=== PATIENT | male | born 1995 | race Caucasian/White ===

== ENCOUNTER 2019-07-19 20:02 | Emergency (ER) | payer SELFPAY ==
[2019-07-19 22:31] LABS: ABS Basophils 0.1 10^3/ul (0-0.2); ABS Eosinophils 0.1 10^3/ul (0-0.6); ABS Lymphocytes 2.7 10^3/ul (1.0-4.8); ABS Monocytes 0.5 10^3/ul (0-0.8); ABS Neutrophils 4.4 10^3/ul (1.5-7.7); Eosinophil % 0.8 %; Hematocrit 43 % (42-52); Hemoglobin 14.9 g/dL (14.0-18.0); Lymphocyte % 35.2 %; Mean Corpuscular HGB Conc 34 g/dL (31-36); Mean Corpuscular Hemoglobin 31 pg (27-31); Mean Corpuscular Volume 90 fL (80-94); Platelet Count 244 10^3/uL (150-450); Red Blood Count 4.81 10^6 /uL (4.18-5.48); Red Cell Distribution Width 14 % (10-15); White Blood Count 7.7 10^3/uL (3.5-10.8)
--- NOTE | 2019-07-19 22:47 | ED ---
Skin Complaint - HPI Summary HPI Summary: C/o rash to chest and back x 2 weeks. No prior hx of same. Rash itchy, non painful. Denies sob, throat or facial swelling, any other sx, pain or injury. Med hx = none. Denies new meds, chnage in soaps, detergents, lotions, new foods. - History of Current Complaint Chief Complaint: EDRashSkinAbscess Time Seen by Provider: 07/19/19 21:42 Stated Complaint: BODY RASH PER PT Hx Obtained From: Patient Onset/Duration: Started Weeks Ago Skin Exposure Onset/Duration: Weeks Ago Timing: Constant Current Severity: None Pain Intensity: 0 Pain Scale Used: 0-10 Numeric Skin Location: Chest Aggravating Symptom(s): Nothing Alleviating Symptom(s): Nothing Associated Signs & Symptoms: Rash - Allergy/Home Medications Allergies/Adverse Reactions: Allergies Allergy/AdvReac Type Severity Reaction Status Date / Time No Known Allergies Allergy Verified 07/19/19 20:25 PMH/Surg Hx/FS Hx/Imm Hx Endocrine/Hematology History: Denies: Hx Anticoagulant Therapy Cardiovascular History: Denies: Hx Pacemaker/ICD History: Denies: Hx Dialysis Sensory History: Denies: Hx Eye Prosthesis Opthamlomology History: Denies: Hx Legally Blind EENT History: Denies: Hx Deafness Neurological History: Denies: Hx Dementia - Immunization History Date of Influenza Vaccine: No Immunizations Up to Date: Yes Infectious Disease History: No Infectious Disease History: Denies: Traveled Outside the [place] in Last 30 Days - Family History Known Family History: Positive: Non-Contributory - Social History Alcohol Use: Occasionally Substance Use Type: Reports: Marijuana Substance Use Comment - Amount & Last Used: occasional Smoking Status (MU): Never Smoked Tobacco Review of Systems Constitutional: Negative Eyes: Negative ENT: Negative Cardiovascular: Negative Respiratory: Negative Gastrointestinal: Negative Genitourinary: Negative Musculoskeletal: Negative Positive: Rash Neurological: Negative Psychological: Normal All Other Systems Reviewed And Are Negative: Yes Physical Exam - Summary Physical Exam Summary: Individual satellite 1cm x 1cm lesions covering chest and back are erythematous , raised, scaly. Lesions are blanchable. Non vesicular, bilateral. Triage Information Reviewed: Yes Vital Signs On Initial Exam: Initial Vitals Temp Pulse Resp BP Pulse Ox 99 F 71 15 121/90 99 07/19/19 20:24 07/19/19 20:24 07/19/19 20:24 07/19/19 20:24 07/19/19 20:24 Vital Signs Reviewed: Yes Appearance: Positive: Well-Appearing Skin: Positive: Scaly Skin/Lesions. Negative: Tender, Target Lesions Head/Face: Positive: Normal Head/Face Inspection Eyes: Positive: Normal ENT: Positive: Normal ENT inspection Neck: Positive: Supple Respiratory/Lung Sounds: Positive: Clear to Auscultation Cardiovascular: Positive: Normal Abdomen Description: Positive: Nontender Musculoskeletal: Positive: Normal Neurological: Positive: Normal Psychiatric: Positive: Normal AVPU Assessment: Alert - [place] Coma Scale Best Eye Response: 4 - Spontaneous Best Motor Response: 6 - Obeys Commands Best Verbal Response: 5 - Oriented Coma Scale Total: 15 Procedures - Sedation Patient Received Moderate/Deep Sedation with Procedure: No Diagnostics - Vital Signs Vital Signs Temp Pulse Resp BP Pulse Ox 07/19/19 20:24 99 F 71 15 121/90 99 - Laboratory Lab Results: Lab Results 07/19/19 Range/Units 22:24 WBC 7.7 (3.5-10.8) 10^3/uL RBC 4.81 (4.18-5.48) 10^6 /uL Hgb 14.9 (14.0-18.0) g/dL Hct 43 (42-52) % MCV 90 (80-94) fL MCH 31 (27-31) pg MCHC 34 (31-36) g/dL RDW 14 (10-15) % Plt Count 244 (150-450) 10^3/uL MPV 8.0 (7.4-10.4) fL Neut % (Auto) 57.4 % Lymph % (Auto) 35.2 % [place] % (Auto) 5.9 % Eos % (Auto) 0.8 % Baso % (Auto) 0.7 % Absolute Neuts (auto) 4.4 (1.5-7.7) 10^3/ul Absolute Lymphs (auto) 2.7 (1.0-4.8) 10^3/ul Absolute Monos (auto) 0.5 (0-0.8) 10^3/ul Absolute Eos (auto) 0.1 (0-0.6) 10^3/ul Absolute Basos (auto) 0.1 (0-0.2) 10^3/ul Absolute Nucleated RBC 0.0 10^3/ul Nucleated RBC % 0.0 ESR Pending Result Diagrams: 07/19/19 22:24 07/19/19 22:24 Lab Statement: Any lab studies that have been ordered have been reviewed, and results considered in the medical decision making process. Course/Dx - Course Course Of Treatment: C/o rash to chest and back x 2 weeks. No prior hx of same. Rash itchy, non painful. Denies sob, throat or facial swelling, any other sx, pain or injury. Med hx = none. Denies new meds, chnage in soaps, detergents, lotions, new foods. VS wnl. Labs wnl. Also evaluated by Dr Chun. 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 Rx for betamethasone cream. F/up with derm. - Diagnoses Provider Diagnoses: Psoriasis Discharge ED - Sign-Out/Discharge Documenting (check all that apply): Patient Departure - Discharge Plan Condition: Stable Disposition: HOME Prescriptions: Betamethasone Brianne 0.1% CM(NF) [Valisone 0.1% CM(NF)] 1 applic .SEE ORDER DAILY 7 Days #7 applic Patient Education Materials: Psoriasis (ED) Referrals: No Primary Care Phys,NOPCP [Primary Care Provider] - Fang Fung MD [Medical Doctor] - Additional Instructions: Apply betamethasone cream once daily. Follow-up with dermatology Dr. Fung for further evaluation. - Billing Disposition and Condition Condition: STABLE Disposition: Home
[2019-07-19 22:50] LABS: ALT 20 U/L (7-52); Albumin 4.5 g/dL (3.2-5.2); Albumin/Globulin Ratio 1.7 (1-3); Alkaline Phosphatase 54 U/L (34-104); BUN/Creatinine Ratio 21.8 (8-20); Blood Urea Nitrogen 17 mg/dL (6-24); C Reactive Protein < 1.00 mg/L (<8.01); CO2 Carbon Dioxide 27 mmol/L (22-32); Calcium 9.7 mg/dL (8.6-10.3); Chloride 103 mmol/L (101-111); EGFR Non-African American 122.3 (>60); Globulin 2.7 g/dL (2-4); Glucose 85 mg/dL (70-100); Sodium 136 mmol/L (135-145); Total Protein 7.2 g/dL (6.4-8.9)
[2019-07-19 22:52] LABS: Anion Gap 6 mmol/L (2-11)
[2019-07-19 22:59] VITALS: BP 110/74
[2019-07-19 23:01] LABS: Rheumatoid Factor < 10 IU/mL (<15)
[2019-07-19 23:53] LABS: Erythrocyte Sed Rate 2 mm/Hr (0-14)
== END 2019-07-19 23:00 | disposition home or self-care (01) ==
LOC: ED 20:02
DX: L40.9 Psoriasis, unspecified (principal); R21 Rash and other nonspecific skin eruption
CPT/HCPCS: 36415; 80053; 85025; 85652; 86140; 86431; 99281